=== PATIENT | female | born 1960 | race Caucasian/White ===

== ENCOUNTER 2020-05-07 13:26 | Emergency (ER) | payer SELFPAY ==
[2020-05-07] MEDS ORDERED: HYDROCODONE/APAP 10/325 TAB ONE (13:54)
--- NOTE | 2020-05-07 14:22 | RAD REPORT ---
EXAM DESCRIPTION: RAD - Forearm Right - 05/07/2020 2:08 pm CLINICAL HISTORY: Pain;Deformity;Swelling COMPARISON: No comparisons FINDINGS: Transverse fracture is present through the distal radial metaphysis. There is an additiona l oblique fracture through the metaphysis extending to the articular surface. Impaction is seen along the dorsal margin. There is 20 degree dorsal angulation deformity. Ulna styloid is fractured without displacement. No pathologic component seen. No significant degenerative change. Remainder of the forearm is intact. No elbow joint abnormality seen. No foreign body or other soft tissue abnormality. IMPRESSION: Comminuted distal radius fracture with at least 1 fracture line extending to the articul ar surface. Nondisplaced ulna styloid fracture.
[2020-05-07] MEDS ORDERED: NA CHLORIDE 0.9% 500 ML ONE (15:28)
[2020-05-07] MEDS ORDERED: propofoL 200 MG/20 ML VIAL IV ONE (15:28)
[2020-05-07] MEDS ORDERED: FENTANYL CITR 100 MCG/2 ML ONE (15:53)
--- NOTE | 2020-05-07 16:21 | ER ---
Nurse's Notes [facility] [place] Name: Fadumo Henley Age: 60 yrs Sex: Female : 1960 Arrival Date: 05/07/2020 Time: 13:29 Bed 4 Private MD: Diagnosis: Comminuted distal radius fracture;nondisplaced ulna styloid fracture Presentation: 05/07 13:38 Chief complaint: Patient states: R wrist pain that began just prior to arrival after ss falling backwards from a standing position while doing yard work. Coronavirus screen: Client denies travel out of the [place] in the last 14 days. Ebola Screen: Patient denies exposure to infectious person. Patient denies travel to an Ebola-affected area in the 21 days before illness onset. Initial Sepsis Screen: Does the patient meet any 2 criteria? No. Patient's initial sepsis screen is negative. Does the patient have a suspected source of infection? No. Patient's initial sepsis screen is negative. Risk Assessment: Do you want to hurt yourself or someone else? Patient reports no desire to harm self or others. Onset of symptoms was May 07, 2020. 13:38 Method Of Arrival: Ambulatory ss 13:38 Acuity: KAR 3 ss Historical: - Allergies: 13:39 No Known Allergies; ss - Immunization history:: Adult Immunizations up to date. - Social history:: Smoking status: Patient reports the use of cigarette tobacco products, smokes one-half pack cigarettes per day. Screenin:09 Abuse screen: Denies threats or abuse. Nutritional screening: No deficits noted. em Tuberculosis screening: No symptoms or risk factors identified. Fall Risk None identified. Assessment: 15:15 General: Appears in no apparent distress. uncomfortable, Behavior is cooperative. Pain: em Complains of pain in right wrist Pain currently is 8 out of 10 on a pain scale. Neuro: Level of Consciousness is awake, alert, obeys commands, Oriented to person, place, time, situation, Appropriate for age. Cardiovascular: Capillary refill < 3 seconds Patient's skin is warm and dry. Respiratory: Airway is patent Respiratory effort is even, unlabored, Respiratory pattern is regular, symmetrical. Derm: Skin is intact, is healthy with good turgor, Skin is pink, warm \T\ dry. Musculoskeletal: Capillary refill < 3 seconds, Range of motion: limited in right wrist Bony deformity noted of right wrist Swelling present in right wrist. 15:16 Reassessment: pt signed conscious sedation. em 15:30 Reassessment: initiated conscious sedation, applied ortho glass and splinted right em wrist. 15:57 Reassessment: Patient appears in no apparent distress at this time. Patient is alert, em oriented x 3, equal unlabored respirations, skin warm/dry/pink. sedation complete, pt tolerated well, pending repeat x-ray. Vital Signs: 13:39 BP 110 / 70; Pulse 100; Resp 17; Temp 97.9(TE); Pulse Ox 99% on R/A; Weight 77.11 kg; ss Height 5 ft. 5 in. (165.10 cm); Pain 6/10; 13:39 Body Mass Index 28.29 (77.11 kg, 165.10 cm) ss ED Course: 13:29 Patient arrived in ED. bp1 13:38 [facility]C [facility] kb 13:38 Alejandro Mcmillan MD is Attending Physician. kb 13:39 Triage completed. ss 13:39 Arm band placed on right wrist. ss 13:44 Wound care: ice pack applied. ss 14:09 Forearm Right XRAY In Process Unspecified. EDMS 15:00 Inserted saline lock: 20 gauge in left antecubital area, using aseptic technique. dh3 15:09 Fran Amezquita, RN is Primary Nurse. em 15:09 Patient has correct armband on for positive identification. Bed in low position. Call em light in reach. 15:30 conscious sedation for manual traction and ortho splint applied. em 15:50 Orthoglass splint: Sugar tong splint applied on right arm. capillary refill <3 seconds, dh3 assisted by Kailee Turner and Dr. Mcmillan. 16:14 Forearm Right XRAY In Process Unspecified. EDMS 16:28 Sling applied to right arm. dh3 16:38 IV discontinued, intact, bleeding controlled, No redness/swelling at site. Pressure em dressing applied. Administered Medications: 13:42 Drug: [place] 10 mg-325 mg 1 tabs Route: PO; ss 15:15 Follow up: Response: No adverse reaction em 15:30 Drug: Propofol 40 mg Route: IVP; Site: left antecubital; em 15:32 Follow up: Response: No adverse reaction; No change in condition em 15:35 Drug: Propofol 120 mg Route: IVP; Site: left antecubital; em 15:40 Follow up: Response: No adverse reaction em 15:41 Drug: fentaNYL (PF) 50 mcg Route: IVP; Site: left antecubital; em 16:17 Follow up: Response: No adverse reaction; Marked relief of symptoms; RASS: Alert and em Calm (0) 15:43 Drug: Propofol 40 mg Route: IVP; Site: left antecubital; em 15:45 Follow up: Response: No adverse reaction; Marked relief of symptoms em 15:51 Drug: fentaNYL (PF) 50 mcg Route: IVP; Site: left antecubital; em 16:00 Follow up: Response: No adverse reaction; Marked relief of symptoms; Pain is decreased em Outcome: 16:20 Discharge ordered by MD. kb 16:37 Discharged to home ambulatory, with family. em 16:37 Condition: improved 16:37 Discharge instructions given to patient, Instructed on discharge instructions, follow up and referral plans. medication usage, Demonstrated understanding of instructions, follow-up care, medications, splint care, Prescriptions given X 1. 16:38 Patient left the ED. em Signatures: Dispatcher [employer] Kailee Peres, TIMING INSPECTOR-C TIMING INSPECTOR-Fran Garcia RN RN em Smirch, Shelby, RN RN Shira Chatman [facility] Alethea Harris [facility] [place]
--- NOTE | 2020-05-07 16:21 | EDPHYS ---
Physician Documentation [facility] Name: Fadumo Henley Age: 60 yrs Sex: Female : 1960 Arrival Date: 05/07/2020 Time: 13:29 Bed 4 Private MD: ED Physician Alejandro Mcmillan HPI: 05/07 13:47 This 60 yrs old Female presents to ER via Ambulatory with complaints of Fall kb Injury, Arm Injury. 13:47 Details of fall: The patient fell from an upright position, while walking. Onset: The kb symptoms/episode began/occurred just prior to arrival. Associated injuries: The patient sustained right wrist, decreased range of motion, deformity, painful injury, swelling. Severity of symptoms: At their worst the symptoms were moderate, in the emergency department the symptoms are unchanged. The patient has not experienced similar symptoms in the past. The patient has not recently seen a physician. Pt reports she was doing yard work when she fell backwards from a standing position. c/o right wrist pain . Historical: - Allergies: 13:39 No Known Allergies; ss - Immunization history:: Adult Immunizations up to date. - Social history:: Smoking status: Patient reports the use of cigarette tobacco products, smokes one-half pack cigarettes per day. ROS: 13:45 Constitutional: Negative for fever, chills, and weight loss, Cardiovascular: Negative kb for chest pain, palpitations, and edema, Respiratory: Negative for shortness of breath, cough, wheezing, and pleuritic chest pain, Abdomen/GI: Negative for abdominal pain, nausea, vomiting, diarrhea, and constipation, Back: Negative for injury and pain, Skin: Negative for injury, rash, and discoloration, Neuro: Negative for headache, weakness, numbness, tingling, and seizure. 13:45 MS/extremity: Positive for injury or acute deformity, decreased range of motion, pain, swelling, tenderness, of the right wrist, Negative for Exam: 13:45 Constitutional: This is a well developed, well nourished patient who is awake, alert, kb and in no acute distress. Head/Face: Normocephalic, atraumatic. Chest/axilla: Normal chest wall appearance and motion. Nontender with no deformity. No lesions are appreciated. Cardiovascular: Regular rate and rhythm with a normal S1 and S2. No gallops, murmurs, or rubs. Normal PMI, no JVD. No pulse deficits. Respiratory: Lungs have equal breath sounds bilaterally, clear to auscultation and percussion. No rales, rhonchi or wheezes noted. No increased work of breathing, no retractions or nasal flaring. Abdomen/GI: Soft, non-tender, with normal bowel sounds. No distension or tympany. No guarding or rebound. No evidence of tenderness throughout. Skin: Warm, dry with normal turgor. Normal color with no rashes, no lesions, and no evidence of cellulitis. Neuro: Awake and alert, GCS 15, oriented to person, place, time, and situation. Cranial nerves II-XII grossly intact. Motor strength 5/5 in all extremities. Sensory grossly intact. Cerebellar exam normal. Normal gait. 13:45 Musculoskeletal/extremity: Extremities: grossly normal except: noted in the right wrist: decreased ROM, deformity, pain, swelling, tenderness, ROM: limited active range of motion, in the right wrist, Circulation is intact in all extremities. Sensation intact. Vital Signs: 13:39 BP 110 / 70; Pulse 100; Resp 17; Temp 97.9(TE); Pulse Ox 99% on R/A; Weight 77.11 kg; ss Height 5 ft. 5 in. (165.10 cm); Pain 6/10; 13:39 Body Mass Index 28.29 (77.11 kg, 165.10 cm) Procedures: 16:18 Splinting: Splint applied to right arm using Orthoglass splint, applied by tech. post kb reduction film - reveals improved alignment, Examined by me, post splint application: neurovascular intact, 2+ distal pulses palpable, brisk capillary refill noted, Patient tolerated well. Reduction: of the right wrist, using traction, manipulation, Patient tolerated well. Post reduction film - reveals improved alignment. MDM: 13:38 Patient medically screened. kb 13:46 Data reviewed: vital signs, nurses notes. Data interpreted: Pulse oximetry: on room air kb is 99 %. Interpretation: normal. 16:18 Counseling: I had a detailed discussion with the patient and/or guardian regarding: the kb historical points, exam findings, and any diagnostic results supporting the discharge/admit diagnosis, radiology results, the need for outpatient follow up, a orthopedic surgeon, to return to the emergency department if symptoms worsen or persist or if there are any questions or concerns that arise at home. 05/07 13:39 Order name: Forearm Right XRAY; Complete Time: 14:24 kb 05/07 15:58 Order name: Forearm Right XRAY; Complete Time: 16:30 kb 05/07 14:41 Order name: Conscious Sedation; Complete Time: 16:12 kb 05/07 14:41 Order name: IV Start; Complete Time: 15:08 kb 05/07 16:29 Order name: Sling; Complete Time: 16:29 dh3 Administered Medications: 13:42 Drug: [place] 10 mg-325 mg 1 tabs Route: PO; ss 15:15 Follow up: Response: No adverse reaction em 15:30 Drug: Propofol 40 mg Route: IVP; Site: left antecubital; em 15:32 Follow up: Response: No adverse reaction; No change in condition em 15:35 Drug: Propofol 120 mg Route: IVP; Site: left antecubital; em 15:40 Follow up: Response: No adverse reaction em 15:41 Drug: fentaNYL (PF) 50 mcg Route: IVP; Site: left antecubital; em 16:17 Follow up: Response: No adverse reaction; Marked relief of symptoms; RASS: Alert and em Calm (0) 15:43 Drug: Propofol 40 mg Route: IVP; Site: left antecubital; em 15:45 Follow up: Response: No adverse reaction; Marked relief of symptoms em 15:51 Drug: fentaNYL (PF) 50 mcg Route: IVP; Site: left antecubital; em 16:00 Follow up: Response: No adverse reaction; Marked relief of symptoms; Pain is decreased em Disposition: 05/07/20 16:20 Discharged to Home. Impression: Comminuted distal radius fracture, nondisplaced ulna styloid fracture. - Condition is Stable. - Discharge Instructions: Forearm Fracture, [id number], Cast or Splint Care, [id number]. - Prescriptions for Tylenol- Codeine #3 300-30 mg Oral Tablet - take 2 tablets by ORAL route every 6 hours As needed; 20 tablet. - Medication Reconciliation Form, Thank You Letter, Antibiotic Education, Prescription Opioid Use form. - Follow up: Emergency Department; When: As needed; Reason: Worsening of condition. Follow up: Private Physician; When: 2 - 3 days; Reason: Recheck today's complaints, Continuance of care, Re-evaluation by your physician. Addendum: 05/09/2020 06:39 Co-signature as Attending Physician, Alejandro Mcmillan MD I agree with the assessment and k dr plan of care. Signatures: Dispatcher [employer] EDHI Kailee Turner, EXERCISE SCIENCE INSTRUCTOR-C EXERCISE SCIENCE INSTRUCTOR-Ckb Alejandro Mcmillan MD MD [facility] Fran Amezquita RN RN Sushma Lee RN RN Shira Chatman [facility] Corrections: (The following items were deleted from the chart) 05/07 16:38 16:20 05/07/2020 16:20 Discharged to Home. Impression: Comminuted distal radius em fracture; nondisplaced ulna styloid fracture. Condition is Stable. Forms are Medication Reconciliation Form, Thank You Letter, Antibiotic Education, Prescription Opioid Use. Follow up: Emergency Department; When: As needed; Reason: Worsening of condition. Follow up: Private Physician; When: 2 - 3 days; Reason: Recheck today's complaints, Continuance of care, Re-evaluation by your physician. kb
--- NOTE | 2020-05-07 16:27 | RAD REPORT ---
EXAM DESCRIPTION: RAD - Forearm Right - 05/07/2020 4:14 pm CLINICAL HISTORY: postreduction COMPARISON: Forearm Right dated 05/07/2020 FINDINGS: Cast material is in place. Distal radius fracture has been reduced to anatomic position. N o suspicious or unexpected finding. IMPRESSION: Distal radius fracture has been reduced to anatomic alignment and position.
[2020-05-07 16:45] VITALS: BP 110/70; TEMP 97.9; O2SAT 99
== END 2020-05-07 16:38 | disposition home or self-care (01) ==
LOC: ER 13:26
PROC: 0PSKXZZ Reposition Right Ulna, External Approach (ICD-10-PCS; principal; 2020-05-07)
DX: S52.614A Nondisplaced fracture of right ulna styloid process, initial encounter for closed fracture (principal); W19.XXXA Unspecified fall, initial encounter; Y93.H9 Activity, other involving exterior property and land maintenance, building and construction; Y92.9 Unspecified place or not applicable; F17.210 Nicotine dependence, cigarettes, uncomplicated
CPT/HCPCS: 96374; 96375; 99285; J2704; J3010; J7040